=== PATIENT | male | born 1995 | race Caucasian/White ===

== ENCOUNTER 2021-08-07 21:39 | Emergency (ER) | payer SELFPAY ==
[~2021-08-07] VITALS: Ht 167.6 cm; Wt 62.6 kg
[2021-08-07] MEDS ORDERED: IBUPROFEN 600MG TABLET PO NR (22:45)
[2021-08-08] MEDS ORDERED: TETANUS, DIPHTHERIA, PERTUSSIS VAC/PF 0.5ML (>10YR OLD) IM ONE (02:15)
[2021-08-08] MEDS ORDERED: IBUP-2029 PO (03:29)
[2021-08-08] MEDS ORDERED: BACITRACIN ZINC OINT UDPKT TOP ONE (03:45)
[2021-08-08 04:50] VITALS: BP 130/86
== END 2021-08-08 04:51 | disposition home or self-care (01) ==
LOC: ER 21:39
DX: S52.692A Other fracture of lower end of left ulna, initial encounter for closed fracture (principal); S60.512A Abrasion of left hand, initial encounter; J45.909 Unspecified asthma, uncomplicated; V00.131A Fall from skateboard, initial encounter; Y93.89 Activity, other specified; Y92.9 Unspecified place or not applicable
CPT/HCPCS: 73110; 73130; 90471; 90715; 99284; A4565

== ENCOUNTER 2022-11-28 05:52 | Emergency (ER) | payer SELFPAY ==
[~2022-11-28] VITALS: Ht 172.7 cm; Wt 69.0 kg
[~2022-11-28 05:52] MED LIST: IBUP-2029 PO
[2022-11-28 05:58] VITALS: O2SAT 98
[2022-11-28] MEDS ORDERED: SODIUM CHLORIDE 0.9% 1,000 ML IV ONE (06:15)
[2022-11-28 06:16] LABS: BASOPHILS % 0.5 % (0.0-2.0); EOSINOPHILS % 0.1 % (0.0-5.0); HEMATOCRIT. 43.5 % (42.0-52.0); LYMPHOCYTES % 13.5 % (20.0-50.0); MEAN CORPUSCULAR HEMOGLOBIN 31.5 pg (28.0-32.0); MEAN CORPUSCULAR VOLUME 91.5 fL (80.0-94.0); MEAN PLATELET VOLUME 9.3 fl (7.4-10.4); MONOCYTES % 6.8 % (2.0-8.0); NEUTROPHILS % 79.1 % (40.0-76.0); PLATELET 123 x1000/uL (130-400); RED BLOOD CELL COUNT 4.75 mill/uL (4.7-6.1); RED CELL DISTRIBUTION WIDTH 13.3 % (11.6-14.6)
[2022-11-28 06:25] LABS: CHLORIDE 98 mEq/L (98-107)
[2022-11-28 06:31] LABS: ETHANOL BLOOD < 10 mg/dL (-10)
[2022-11-28 11:15] VITALS: BP 123/70; PULSE 89; RESP 16; TEMP 98.8
== END 2022-11-28 12:07 | disposition home or self-care (01) ==
LOC: ER 06:15
DX: R74.01 Elevation of levels of liver transaminase levels (principal); F12.10 Cannabis abuse, uncomplicated; J45.909 Unspecified asthma, uncomplicated
CPT/HCPCS: 80053; 80320; 80185; 82962; 80165; 85025; 84484; 36415; 70450; 76705; 96360; 99285; J7030; Z7610; G0480

== ENCOUNTER 2023-02-07 22:45 | Emergency (ER) | payer MEDICAID ==
[~2023-02-07] VITALS: Ht 172.7 cm; Wt 69.0 kg
[2023-02-07 22:49] VITALS: O2SAT 97
[2023-02-07 22:55] VITALS: BP 133/62; PULSE 107; RESP 20; TEMP 98
[2023-02-07] MEDS ORDERED: ACETAMINOPHEN 325MG TABLET PO ONE (23:45)
== END 2023-02-08 01:30 | disposition home or self-care (01) ==
LOC: ER 22:45
DX: S16.1XXA Strain of muscle, fascia and tendon at neck level, initial encounter (principal); S40.011A Contusion of right shoulder, initial encounter; S39.012A Strain of muscle, fascia and tendon of lower back, initial encounter; J45.909 Unspecified asthma, uncomplicated; F12.90 Cannabis use, unspecified, uncomplicated; V89.2XXA Person injured in unspecified motor-vehicle accident, traffic, initial encounter; Y93.89 Activity, other specified; Y92.89 Other specified places as the place of occurrence of the external cause; Y99.8 Other external cause status
CPT/HCPCS: 73030; 99283

== ENCOUNTER 2024-01-14 08:14 | Emergency (ER) | payer OTHER, MEDICAID ==
[~2024-01-14] VITALS: Ht 175.3 cm; Wt 75.0 kg
[2024-01-14 08:17] VITALS: O2SAT 99
[2024-01-14 09:27] LABS: HEMATOCRIT. 45.2 % (42.0-52.0); MEAN CORPUSCULAR HEMOGLOBIN 30.2 pg (28.0-32.0); MEAN CORPUSCULAR HGB CONC 33.1 g/dL (31.0-37.0); MEAN CORPUSCULAR VOLUME 91.3 fL (80.0-94.0); MEAN PLATELET VOLUME 8.4 fl (7.4-10.4); PLATELET 159 x1000/uL (130-400); RED BLOOD CELL COUNT 4.95 mill/uL (4.7-6.1); RED CELL DISTRIBUTION WIDTH 13.4 % (11.6-14.6); WHITE BLOOD COUNT 8.4 x1000/uL (4.5-11.0)
[2024-01-14] MEDS: ONDANSETRON HCL 4MG/2ML INJ IV SCH (09:30)
[2024-01-14] MEDS: LEVETIRACETAM 500MG PREMIX 100 ML IV ONE (09:30)
[2024-01-14] MEDS: SODIUM CHLORIDE 0.9% 1,000 ML IV ONE (09:31)
[2024-01-14] MEDS: LORAZEPAM 2MG/ML INJ IV SCH (09:31)
[2024-01-14 09:34] LABS: CARBON DIOXIDE 24 mEq/L (21-32); CHLORIDE 96 mEq/L (98-107); POTASSIUM 2.9 mEq/L (3.5-5.1); SODIUM 136 mEq/L (136-145)
[2024-01-14 09:35] LABS: CALCIUM 10.4 mg/dL (8.7-10.4)
[2024-01-14 09:36] LABS: DIFFERENTIAL COMMENT 1
[2024-01-14 09:39] LABS: CREATININE 0.9 mg/dL (0.6-1.3)
[2024-01-14 09:40] LABS: GLUCOSE 124 mg/dL (70-105); UREA NITROGEN BLOOD 8 mg/dL (9-23)
[2024-01-14 09:48] LABS: ETHANOL BLOOD < 10 mg/dL (<10)
[2024-01-14 10:17] LABS: PLATELET ESTIMATE NORMAL
[2024-01-14] MEDS: POTASSIUM CHLORIDE 20MEQ TABLET SR PO NR (10:42)
[2024-01-14] MEDS ORDERED: GUAIFENESIN 200MG/10ML SUGAR FREE UDC PO PRN (13:45)
[2024-01-14] MEDS ORDERED: ONDANSETRON HCL 4MG/2ML INJ IV PRN (13:45)
[2024-01-14] MEDS ORDERED: ACETAMINOPHEN 325MG TABLET PO PRN ×2 (13:45)
[2024-01-14] MEDS ORDERED: CLONIDINE 0.1MG TABLET PO PRN (13:45)
[2024-01-14] MEDS ORDERED: IPRATROPIUM/ALBUTEROL 0.5-3(2.5)MG/3ML NEB HHN PRN (13:45)
[2024-01-14] MEDS ORDERED: DOCUSATE SODIUM 100MG CAPSULE PO PRN (13:45)
[2024-01-14] MEDS ORDERED: MAGNESIUM/ALUMINUM HYDROXIDE/SIMETHICONE 30ML UDC PO PRN (13:45)
[2024-01-14 14:40] LABS: LDL CHOLESTEROL 74 mg/dL (5-100); TRIGLYCERIDE 122 mg/dL (0-150)
[2024-01-14 14:41] LABS: ALANINE AMINOTRANSFERASE 92 IU/L (10-49); ALBUMIN 5.1 g/dL (3.2-4.8); ASPARTATE AMINOTRANSFERASE 88 IU/L (<34); BILIRUBIN DIRECT 0.4 mg/dL (<=3.0); BILIRUBIN TOTAL 1.1 mg/dL (0.1-1.0); CHOLESTEROL 214 mg/dL (<200); CREATINE KINASE 137 IU/L (46-171); HDL CHOLESTEROL 127 mg/dL (>55); PROTEIN TOTAL 8.1 g/dL (6.0-8.3)
[2024-01-14 14:43] LABS: T4 FREE 1.16 ng/dL (0.89-1.76)
[2024-01-14 14:44] LABS: THYROID STIMULATING HORMONE 1.84 uIU/mL (0.55-4.78)
[2024-01-14 14:52] LABS: POTASSIUM 4.2 mEq/L (3.5-5.1)
[2024-01-14 15:00] LABS: TROPONIN I HIGH SENSITIVITY 19 ng/L (3.0-53)
[2024-01-14] MEDS ORDERED: POTASSIUM CHLORIDE 20MEQ TABLET SR PO NR (15:00)
[2024-01-14 15:03] VITALS: BP 121/84; PULSE 89; RESP 16; TEMP 37.16964; O2SAT 99
[2024-01-14] MEDS ORDERED: LEVETIRACETAM 500MG PREMIX 100 ML IV SCH (21:00)
[2024-01-14] MEDS ORDERED: LEVETIRACETAM 500 MG in SODIUM CHLORIDE 0.9% 100 ML IV SCH (21:00)
[2024-01-15] MEDS ORDERED: PANTOPRAZOLE SODIUM 40 MG/VIAL IV SCH (09:00)
== END 2024-01-14 15:09 | disposition short-term general hospital (02) ==
LOC: ER 08:14 → EDBEDREQTM 13:32 → EDBEDREQ 13:32 → ER 15:09
DX: R11.2 Nausea with vomiting, unspecified (principal); J45.909 Unspecified asthma, uncomplicated; F10.20 Alcohol dependence, uncomplicated; F17.200 Nicotine dependence, unspecified, uncomplicated; Y90.0 Blood alcohol level of less than 20 mg/100 ml
CPT/HCPCS: 80061; 80076; 80048; 80320; 82550; 84439; 83605; 83690; 83735; 84132; 84443; 85025; 84484; 36415; 84145; 96365; 96375; 99285; J1953; J2060; J2405; 99284; G0480